=== PATIENT | male | born 1975 | race Caucasian/White ===

== ENCOUNTER 2019-12-06 10:42 | Outpatient (CLI) | payer OTHER, SELFPAY ==
--- NOTE | ~2019-12-06 | XR_ITS ---
EXAMINATION: XR chest 2V EXAM DATE: 12/06/2019 11:10 INDICATION: Upper respiratory infection. Cough. TECHNIQUE: Frontal and lateral projections of the chest obtained and reviewed. Comparison is made to prior examination from 10/29/2018. FINDINGS: The lungs are clear. There are no pleural effusions. The cardiomediastinal silhouette is within normal limits. There is no pneumothorax suspected. The bones and soft tissues are unremarkab le. IMPRESSION: No acute cardiopulmonary findings. Reviewed, dictated and finalized at location A. [employer]
== END 2019-12-06 10:43 | disposition home or self-care (01) ==
LOC: ANHIMG 10:50
PROVIDERS: PCP Family Medicine; Visit Provider Physician Assistant
DX: J06.9 Acute upper respiratory infection, unspecified (principal)
CPT/HCPCS: 71046

== ENCOUNTER 2020-01-23 09:27 | Outpatient (CLI) | payer OTHER, SELFPAY ==
--- NOTE | ~2020-01-23 | XR_ITS ---
EXAMINATION: XR shoulder RT min 2V INDICATION: Right shoulder pain TECHNIQUE: Four views of the right shoulder are submitted. COMPARISON: None FINDINGS: Normal alignment. No fracture. Glenohumeral and acromioclavicular joint spaces are normal. Soft tissues are unremarkable. IMPRESSION: No acute osseous abnormality. Reviewed, dictated and finalized at location B.
--- NOTE | ~2020-01-23 | XR_ITS ---
EXAMINATION: XR elbow LT min 3V DATE: 01/23/2020 09:59 INDICATION: Left elbow pain TECHNIQUE: Anteroposterior, two oblique and lateral views of the left elbow were obtained. COMPARISON: None. FINDINGS: Alignment is normal. No fracture or joint effusion. Joint spaces are normal. Soft tissues a re unremarkable. IMPRESSION: 1. No acute osseous abnormality. Reviewed, dictated and finalized at location B.
--- NOTE | ~2020-01-23 | US_ITS ---
US right upper quadrant INDICATION: Diffuse abdominal pain PROCEDURE: Realtime right upper abdominal ultrasound. COMPARISON: No prior studies for comparison. FINDINGS: The pancreas is normal without focal mass or pancreatic ductal dilation. Liver echotexture is normal. There is a small hyperechoic mass of the left hepatic lobe measuring 11 x 9 x 6 mm, most likely benign hemangioma in the absence of known malignancy. Clinically correlate. There is normal d irectional flow in the portal vein. The gallbladder is normal without stones, gallbladder wall thickening or pericholecystic fluid. Comm on bile duct measures 6 mm. No sonographic Swain's sign. IMPRESSION: 1: Small hyperechoic mass of the left hepatic lobe measuring 11 x 9 x 6 mm, most likely benign sandra ioma in the absence of known malignancy. Clinically correlate. Reviewed, dictated and finalized at location A. IMPRESSION: 1: Small hyperechoic mass of the left hepatic lobe measuring 11 x 9 x 6 mm, mos t likely benign hemangioma in the absence of known malignancy. Clinically corre late.
== END 2020-01-23 09:28 | disposition home or self-care (01) ==
LOC: ANHIMG 09:37
PROVIDERS: PCP Family Medicine; Visit Provider Family Medicine
DX: M25.522 Pain in left elbow (principal); M25.511 Pain in right shoulder; K30 Functional dyspepsia
CPT/HCPCS: 73030; 73080; 76705

== ENCOUNTER 2020-06-14 10:51 | Outpatient (CLI) | payer OTHER, SELFPAY ==
--- NOTE | ~2020-06-14 | XR_ITS ---
EXAMINATION: XR chest 2V DATE: 06/14/2020 11:15 INDICATION: Cough. Chest congestion. TECHNIQUE: Frontal and lateral views of the chest were obtained. COMPARISON: Chest 2 views 12/06/2019 FINDINGS: There is mild scarring at the lung apices. No pleural effusion or pneumothorax. The heart s ize is normal. IMPRESSION: 1. Mild scarring at the lung apices. Reviewed, dictated and finalized at location B.
== END 2020-06-14 10:52 | disposition home or self-care (01) ==
LOC: ANHIMG 10:54
PROVIDERS: PCP Family Medicine; Visit Provider Family Medicine
DX: R05 Cough (principal); R91.8 Other nonspecific abnormal finding of lung field
CPT/HCPCS: 71046

== ENCOUNTER 2021-09-26 14:11 | Outpatient (CLI) | payer OTHER, SELFPAY ==
--- NOTE | ~2021-09-26 | XR_ITS ---
XR foot LT min 3V 09/26/2021 15:28 Indication: Left foot pain Procedure: 4 views left foot Comparison: No prior studies for comparison. Findings: There is mild osteoarthritis of the first MTP joint. No fracture, subluxation or dislocatio n. Lisfranc joint is intact. No significant soft tissue abnormality. No foreign bodies. Impression: 1: Mild osteoarthritis of the first MTP joint. Reviewed, dictated and finalized at location A. [employer]N Impression: 1: Mild osteoarthritis of the first MTP joint.
--- NOTE | ~2021-09-26 | MR_ITS ---
EXAMINATION: MR shoulder RT wo con DATE: 09/26/2021 15:14 INDICATION: Progressively worsening chronic right shoulder pain with limited range of motion TECHNIQUE: Magnetic resonance imaging (MRI) of the right shoulder was performed without intravenous c ontrast. Sequences included axial PD-weighted FS FSE, coronal oblique PD-weighted FS FSE, coronal obl ique T2-weighted FS FSE, sagittal PD-weighted FS FSE, and sagittal T1-weighted SE. COMPARISON: None. FINDINGS: Coracoacromial arch: The acromion undersurface is curved in morphology (type II). The coracoacromial ligament is normal. M ild acromioclavicular osteoarthritis without inferiorly directed osteophytes. Rotator cuff: Mild supraspinatus tendinopathy with very small tear measuring 3 mm AP along the articular side of th e superior facet footplate which involves between one third and one half of the tendon thickness. The infraspinatus and teres minor tendons are normal. The subscapularis tendon is normal. Normal rotator cuff muscle bulk and signal. Biceps tendon, glenoid labrum and glenohumeral cartilage: Long head of the biceps tendon is normal. There is a tear at the anteroinferior glenoid labrum. Mild partial-thickness cartilage loss with smooth chondral surface at the anteroinferior glenoid. Fluid: Physiologic amount of fluid in the glenohumeral joint and biceps tendon sheath. No loose osteochondra l bodies. Small amount of fluid in the subacromial/subdeltoid bursa consistent with mild bursitis. Bones: Normal marrow signal with no edema, fracture or abnormal marrow replacing process. Mild cystic change at the anterior aspect of the superior facet of the greater tuberosity likely related to the adjacen t small rotator cuff tear. IMPRESSION: 1. Mild supraspinatus tendinopathy with very small articular sided tear at the anterior superior face t footplate. 2. Small tear at the anteroinferior glenoid with mild partial-thickness cartilage loss along the ante roinferior rim of the glenoid. Line 3. Mild subacromial/subdeltoid bursitis. Reviewed, dictated and finalized at location A. OTYPE ENGINEER IMPRESSION: 1. Mild supraspinatus tendinopathy with very small articular sided tear at the anterior superior facet footplate. 2. Small tear at the anteroinferior glenoid with mild partial-thickness cartila ge loss along the anteroinferior rim of the glenoid. Line 3. Mild subacromial/subdeltoid bursitis.
== END 2021-09-26 14:12 | disposition home or self-care (01) ==
LOC: ANHIMG 14:20
PROVIDERS: PCP Family Medicine; Visit Provider Family Medicine
DX: M75.51 Bursitis of right shoulder (principal); M19.072 Primary osteoarthritis, left ankle and foot
CPT/HCPCS: 73221; 73630

== ENCOUNTER 2022-06-06 14:13 | Emergency (ER) | payer OTHER, SELFPAY ==
--- NOTE | ~2022-06-06 | XR_ITS ---
EXAMINATION: XR chest 2V Exam Date/Time: 06/06/2022 15:23 CDT HISTORY: lt sided chest and back pain, copd Comparison: 06/14/2020. RESULT: Lines, tubes, and devices: None. Lungs and pleura: Clear. Bibasilar scar/atelectasis. Cardiomediastinal silhouette: Stable. Other: No acute osseous or upper abdominal finding. IMPRESSION: No acute cardiopulmonary process. Reviewed, dictated and finalized at location K.
[2022-06-06 14:28] VITALS: BP 107/84; PULSE 84; RESP 16; TEMP 36.7; O2SAT 97
--- NOTE | 2022-06-06 15:14 | ED.BACK ---
HPI - Back Pain/Injury General Chief Complaint: Back Pain/Injury Stated Complaint: Side and back Pain Time Seen by Provider: 06/06/22 15:05 Source: patient Mode of arrival: ambulatory Limitations: no limitations History of Present Illness HPI Narrative: Patient presents today complaining of left upper back pain radiating to the left chest since yesterday. States the pain is sharp and becomes worse with deep breaths or movement. He is short of breath at times. Patient states he Does have a chronic cough due to his COPD.He has tried no medication for symptoms prior to arrival.He was sick a few weeks ago and was on antibiotics prescribed by his PCP. Related Data Home Medications Medication Instructions Recorded Confirmed loratadine 10 mg tablet 10 mg PO DAILY 06/06/22 06/06/22 montelukast 10 mg tablet 10 mg PO DAILY 06/06/22 06/06/22 Allergies Allergy/AdvReac Type Severity Reaction Status Date / Time No Known Allergies Allergy Verified 06/06/22 14:18 Review of Systems Review of Systems: CONSTITUTIONAL: Denies body aches, fever, chills, or sweats. EYES: Denies visual changes, redness, or discharge. ENT: Denies rhinorrhea, congestion, sore throat, or otalgia. CARDIOVASCULAR: Denies chest pain, palpitations, or edema. RESPIRATORY:+Cough, shortness of breath GASTROINTESTINAL: Denies abdominal pain, nausea, vomiting, or diarrhea. GENITOURINARY: Denies dysuria or hematuria. SKIN: Denies rash, itching, or wounds. MUSCULOSKELETAL: Denies joint pain, or myalgia.+Left upper back pain NEUROLOGIC: Denies headache, numbness, tingling, or weakness. PSYCH: Denies depression or anxiety. PENDING SALE TO [facility] Past Medical History Medical History (Updated 06/06/22 @ 16:11 by Amirah Ortiz, [facility], ) COPD (chronic obstructive pulmonary disease) Social History Social History Smoking packs per day: 1.5 Smoking cigarettes per day: 30.0 Smoking status: Current every day smoker Comments At time of signature, I have reviewed and agree with nursing past medical, surgical, social and family history unless otherwise noted. Please see nursing chart for further information. There is no relevant family history pertinent to the presenting complaint Exam Narrative: GENERAL: Well-appearing, well-nourished, and in no acute distress. HEAD: Normocephalic, atraumatic. EYES: EOMI. No redness or drainage. Conjunctivae normal. ENT: Mucous membranes pink and moist. Nares clear. No rhinorrhea. TMs normal bilaterally. Throat normal. Uvula midline. NECK: Normal AROM. Supple. No lymphadenopathy. CHEST: No respiratory distress. Clear to auscultation. Pain is not reproducible to palpation of the back or chest, but is reproducible with movement of the left arm. HEART: Regular rate and rhythm. No murmur appreciated. Normal peripheral pulses. EXTREMITIES: Normal range of motion. No edema. SKIN: Warm, dry, no rash. Capillary refill normal. Normal skin turgor. NEURO: No focal deficits. Alert and oriented x3. Gait steady. PSYCH: Normal affect. No signs of depression or anxiety. Course Course Emergency Course: At this time, I feel it indicated to transfer patient to the ER for further evaluation of his backslash chest pain. Patient cannot guarantee that he will proceed directly to the ER as he does not want to wait several hours for evaluation. I told patient that I was unsure if the wait in the emergency department at [facility] at this time, But he should not make that decision based on weight times. We discussed risks of going home and not going to the hospital for further evaluation. At this time, patient would like to be discharged AGAINST MEDICAL ADVICE and may seek treatment in the emergency department at a later date Level of Care: Express Care Visit Vital Signs Vital signs: Vital Signs Temperature 98.1 F 06/06/22 14:28 Pulse Rate 84 06/06/22 14:28 Respiratory Rate 16
--- NOTE | 2022-06-06 15:34 | ECG_ITS ---
Measurements Intervals [place] Rate: 66 P: 33 IN: 158 QRS: 38 QRSD: 98 T: 33 QT: 347 QTc: 365 Interpretive Statements SINUS RHYTHM MINOR RIGHT VENTRICULAR CONDUCTION DELAY [RSR (QR) IN V1/V2] WITHIN NORMAL LIMITS NO PREVIOUS ECG AVAILABLE FOR COMPARISON Electronically Signed On 06-07-2022 8:19:02 CDT by Dion Dale M.D.
== END 2022-06-06 16:15 | disposition left against medical advice (07) ==
PROVIDERS: Emergency Provider Nurse Practitioner
DX: M54.6 Pain in thoracic spine (principal); R07.89 Other chest pain; F17.210 Nicotine dependence, cigarettes, uncomplicated; J44.9 Chronic obstructive pulmonary disease, unspecified
CPT/HCPCS: 71046; 93005; 99213; G0463

== ENCOUNTER 2022-10-09 18:40 | Emergency (ER) | payer OTHER, SELFPAY ==
--- NOTE | 2022-10-09 18:40 | ED.UPPEXIN ---
HPI - Extremity Injury (Upper) General Chief Complaint: Extremity Injury, Upper Stated Complaint: right shoulder pain Time Seen by Provider: 10/09/22 18:40 Source: patient Mode of arrival: ambulatory Limitations: no limitations History of Present Illness HPI narrative: Mr. Riggs is a 47-year-old male patient presenting to the clinic today with complaints of right-sided shoulder pain x 4 days. He reports he was removing metal items out of the truck to give to the scrap yd with his son-in-law and he was sling any things behind him with his right arm. states he is due for a cortisone injection in his right shoulder on Wednesday however he has been doing with the pain for 4 days and ibuprofen, Aleve, and Tylenol are not relieving his pain. He states he has 3 torn rotator cuff tears. States he had MRI 8 months ago and three rotator cuff tears were found. also reporting some muscle spasms in the right anterior shoulder as well as over the cervical aspect of the trapezius muscle. Related Data Allergies Allergy/AdvReac Type Severity Reaction Status Date / Time No Known Allergies Allergy Verified 06/06/22 14:18 Review of Systems Review of Systems: Pertinent positives per HPI. Patient denies any fever, chills, rash, headache, visual changes, dizziness, cough, runny nose, sore throat, shortness of breath, chest pain, palpitations, nausea, vomiting, diarrhea, constipation, abdominal pain, or any urinary issues. [facility] Past Medical History Medical History COPD (chronic obstructive pulmonary disease) Social History Social History Smoking packs per day: 1.5 Smoking cigarettes per day: 30.0 Smoking status: Current every day smoker Comments At the time of my signature, I reviewed and agree with the nursing past medical, surgical, social, and family history. There is no relevant family history pertinent to the patient complaint. Exam Narrative: General: Well-developed, well nourished, in no apparent distress Head: Normocephalic, atraumatic. Cardio: Regular rate and rhythm, s1 and s2 normal, no murmur appreciated. Resp: Clear to auscultation bilaterally, no rhonchi, rales, wheezing or rubs. Musculoskeletal: No deformity, tender to palpation Over the anterior and posterior shoulder and as well as over the cervical portion of the trapezius muscle on the right side. Pain with raising his right arm above his head, negative drop-arm test. limited range of motion due to pain, bilateral hand certified fire investigator strong and equal, upper extremity muscle strength strong and equal, peripheral pulse strong, no edema, no cyanosis, normal gait and station Course Course Emergency Course: Portions of this record may have been created with voice recognition software. Level of Care: Express Care Visit Vital Signs Vital signs: Vital Signs Temperature 36.9 C 10/09/22 18:51 Pulse Rate 92 10/09/22 18:51 Respiratory Rate 16 10/09/22 18:51 Blood Pressure 140/92 H 10/09/22 18:51 Pulse Oximetry 98 10/09/22 18:51 Oxygen Delivery Room Air 10/09/22 18:51 Temperature 36.9 C 10/09/22 18:51 Pulse Rate 92 10/09/22 18:51 Respiratory Rate 16 10/09/22 18:51 Blood Pressure 140/92 H 10/09/22 18:51 Pulse Oximetry 98 10/09/22 18:51 Oxygen Delivery Room Air 10/09/22 18:51 Vital signs reviewed MDM - Extremity Injury (Upper) MDM Narrative Medical decision making narrative: at the time of visit patient is resting comfortably on exam table. I suspect the patient has an exacerbation of chronic shoulder pain as well as a portion of a cervical strain over the trapezius muscle on the right side. Prescription for a muscle relaxer Flexeril and prednisone was sent to the pharmacy. Supportive measures were discussed with the patient he voiced understanding of discharge instructions and agrees to treatment plan. He is t
[2022-10-09 18:51] VITALS: BP 140/92; PULSE 92; RESP 16; TEMP 36.9; O2SAT 98
== END 2022-10-09 19:09 | disposition home or self-care (01) ==
PROVIDERS: Emergency Provider Nurse Practitioner Family
DX: S46.811A Strain of other muscles, fascia and tendons at shoulder and upper arm level, right arm, initial encounter (principal); J44.9 Chronic obstructive pulmonary disease, unspecified; F17.210 Nicotine dependence, cigarettes, uncomplicated; X58.XXXA Exposure to other specified factors, initial encounter
CPT/HCPCS: 99213; G0463

== ENCOUNTER 2022-11-27 11:14 | Outpatient (CLI) | payer OTHER, SELFPAY ==
--- NOTE | ~2022-11-27 | CT_ITS ---
EXAMINATION:CT diagnostic chest wo con DATE: 11/27/2022 11:45 INDICATION: Respiratory crackles. TECHNIQUE: Computed tomography (CT) of the chest was performed without intravenous contrast. Automate d exposure control and iterative reconstruction technique were employed. The dose-length product (DLP ) was 205.44 mGy-cm. COMPARISON: Chest 2 views 06/06/2022 FINDINGS: There is mild emphysema. There is mild atelectasis bilaterally. There is a 4 mm nodule at l eft major fissure, likely benign. There is mild bronchiectasis in right middle lobe and lingula. No p leural effusion. The heart size is normal. No pericardial effusion. There is mild thoracic spondylosi s. IMPRESSION: 1. Mild emphysema. 2. Mild bronchiectasis in right middle lobe and lingula. Reviewed, dictated and finalized at location A. MAKER
[2022-11-30 14:34] LABS: NIL 0.03 IU/mL; Quantiferon TB Plus, 1T NEGATIVE (NEGATIVE)
[2022-11-30 14:47] LABS: Immunoglobulin G, Serum 522 mg/dL (600-1640); Immunoglobulin G1 288 mg/dL (382-929); Immunoglobulin G2 120 mg/dL (241-700); Immunoglobulin G3 88 mg/dL (22-178); Immunoglobulin G4 23.4 mg/dL (4.0-86.0)
[2022-12-04 03:21] LABS: Immunoglobulin E 56 kU/L (<=114)
== END 2022-11-27 11:15 | disposition home or self-care (01) ==
PROVIDERS: PCP Physician Assistant; Visit Provider Nurse Practitioner
DX: E88.01 Alpha-1-antitrypsin deficiency (principal); J43.9 Emphysema, unspecified; J47.9 Bronchiectasis, uncomplicated
CPT/HCPCS: 36415; 71250; 82103; 82784; 82785; 82787; 86003; 86480

== ENCOUNTER 2023-01-06 11:41 | Outpatient (CLI) | payer OTHER, SELFPAY ==
[2023-01-09 09:19] LABS: Alpha-1-Antitrypsin, QN 103 mg/dL (83-199)
== END 2023-01-06 11:42 | disposition home or self-care (01) ==
PROVIDERS: PCP Physician Assistant; Visit Provider Nurse Practitioner
DX: E88.01 Alpha-1-antitrypsin deficiency (principal)
CPT/HCPCS: 36415; 82103

== ENCOUNTER 2023-05-18 13:04 | Outpatient (CLI) | payer OTHER, SELFPAY ==
[2023-05-22 23:00] LABS: Immunoglobulin G, Serum 554 mg/dL (600-1640); Immunoglobulin G1 325 mg/dL (382-929); Immunoglobulin G2 135 mg/dL (241-700); Immunoglobulin G3 89 mg/dL (22-178); Immunoglobulin G4 29.4 mg/dL (4.0-86.0)
== END 2023-05-18 13:05 | disposition home or self-care (01) ==
PROVIDERS: PCP Physician Assistant; Visit Provider Nurse Practitioner
DX: D84.9 Immunodeficiency, unspecified (principal)
CPT/HCPCS: 36415; 82784; 82787

== ENCOUNTER 2024-11-13 10:16 | Emergency (ER) | payer OTHER, SELFPAY ==
[2024-11-13 10:23] VITALS: BP 124/79; PULSE 70; RESP 20; TEMP 36.4; O2SAT 100
--- NOTE | 2024-11-13 10:24 | ED.DENTAL ---
HPI - Dental/Oral General Chief complaint: Dental/Oral Stated complaint: Dental Pain Time Seen by Provider: 11/13/24 10:20 Source: patient Mode of arrival: ambulatory Limitations: no limitations History of Present Illness HPI Narrative: Patient is a 41-year-old male who presents with right lower dental pain. Patient has painful, broken tooth and has been seen by 1 dentist. Follow up dental appointment is December 01. Denies any bitter taste mouth. Related Data Allergies Allergy/AdvReac Type Severity Reaction Status Date / Time No Known Allergies Allergy Verified 06/06/22 14:18 Review of Systems Review of Systems: All systems reviewed & are unremarkable except as noted in HPI and below Constitutional: Constitutional: Denies body ache(s), Denies fever(s), Denies headache(s), Denies malaise and Denies weakness Eyes: Eyes: Denies loss of vision ENT: Denies otalgia, Reports facial pain (jaw), Denies headache(s), Denies nasal discharge, Denies sinus pain and Denies sore throat Cardiovascular: Cardiovascular: Denies chest pain, Denies irregular heart rhythm and Denies dyspnea Respiratory: Respiratory: Denies dyspnea Gastrointestinal: Gastrointestinal: Denies abdominal pain, Denies melena, Denies hematochezia, Denies diarrhea, Denies nausea and Denies vomiting Musculoskeletal: Musculoskeletal: Denies back pain, Denies myalgias and Denies arthralgias Integumentary/Breasts: Skin/Breast: Denies pruritus and Denies rash Neurologic: Denies headache(s), Denies loss of vision and Denies weakness Psychiatric: Psychiatric: Reports no additional psychiatric complaints PMFSH Past Medical History Medical History COPD (chronic obstructive pulmonary disease) Social History Social History Smoking packs per day: 1.5 Smoking cigarettes per day: 30.0 Smoking status: Current every day smoker Comments At time of signature, agree with nursing past medical, surgical, social and family history. There is no relevant family history pertinent to the presenting complaint. Exam Const: General: cooperative, healthy appearing, comfortable, no acute distress and well nourished Nutritional Appearance: well nourished Orientation/consciousness: patient oriented x3 Limitations: no limitations HENMT: Head: normal to inspection, normocephalic and atraumatic Ears: hearing grossly normal bilaterally, external ears normal, TM's normal bilaterally and mastoids normal bilaterally Face/Nose/Sinus: Normal external nose present, normal facial exam and face symmetric Face and sinus: normal facial exam and face symmetric Mouth: Yes Normal oral and palatal mucosa present, Yes lip normal, Yes tongue normal, Yes Normal salivary glands and ducts present and Yes moist mucous membranes Teeth and gingiva: abnormal tooth and associated gingiva lower right first molar tender, with associated gingival edema and dentin fractured and poor dentition Eyes: General: appearance normal, both eyes and all related structures Alignment and Position: alignment normal and position normal Periorbital: periorbital findings normal Eyelids: eyelids normal Pupils: Equal, round and reactive pupils present EOM: EOMs intact bilaterally Neck: Neck: normal visual inspection, full ROM, no lymphadenopathy and supple Chest: Chest palpation & inspection: normal inspection of the chest Resp: Effort & Inspection: normal respiratory effort and able to speak in complete sentences Auscultation: clear to auscultation bilaterally Cardio: Rate: regular rate Rhythm: regular rhythm Heart sounds: S1 normal heart sound present and S2 normal heart sound present GI: Inspection: normal to inspection Skin: General skin exam: normal color and no rashes or lesions noted Neuro: General: patient oriented x3 and moves all extremities Cranial nerves: Yes Equal, round and reactive pupils present Speech: normal speech Gait exam (Neuro): Normal gait present Extrem: General: normal to inspection, full ROM and no edema Psych: Appearance: grossly normal and well kempt Mental Status: mental status grossly normal Speech and movement: Normal speech and movement present Affect: normal affect Attitude: cooperative Thought process: Normal thought process present Course Course Emergency Course: Patient is aware of diagnosis, understands and agrees to treatment plan. Anticipatory guidance given. Patient agrees to follow-up as directed and is aware of reasons to seek care at the emergency department. Portions of this record may have been created with voice recognition software Level of Care: Express Care Visit Vital Signs Vital signs: Reviewed MDM - Dental/Oral MDM Narrative Medical decision making narrative: Patients pain and complaint coupled with physical findings are consistant with dentalgia. There are no focal signs of space occupying lesions that are compromising to the airway; no dysphagia, odynophagia, dysphonia, or dyspnea. No uvular deviation or soft palate edema. Patient is non-toxic appearing. The floor of the mouth is soft with no signs of Alverto's Angina; no induration below mandible, no neck pain. Patient is without trismus or drooling and able to swallow secretions. Patient is felt appropriate for discharge home with dental follow up. Differential Diagnosis Differential diagnosis: Likely gingival abscess, dental caries, toothache, dental abscess and fracture of tooth Medical Records Attestation: I reviewed the patient's medical records. Discharge Plan Discharge Clinical Impression: Dental abscess Patient Disposition: Home, Self-Care Condition: Stable Instructions: Dental Abscess (ED) Additional Instructions: Take antibiotic until it's gone. Brushing teeth at least twice daily with gentle flossing. Avoid temperature extremes---when you eat. Salt gargle to rinse your mouth after every meal You may apply ice to the face to reduce pain/swelling. For pain, you may take: Tylenol 650-1000mg by mouth every 4-6 hours. Do not exceed 4000mg in 24 hours. Advil (Ibuprofen) 600 mg by mouth every 6 hours. Do not exceed 2400mg in 24 hours. 8 AM: Tylenol 11 AM: Ibuprofen 2 PM: Tylenol 5 PM: Ibuprofen 8 PM: Tylenol 11 PM: Ibuprofen 2 AM: Tylenol 5 AM: Ibuprofen Also, recommend regular dental check up one-two times a year to prevent tooth decay and other periodontal disease. Follow-up with the dentist as soon as possible--see the list provided Patient Language: Georgian Prescriptions: New amoxicillin-pot clavulanate 875-125 mg tablet 1 tablet PO Q12H 14 Days Qty: 28 0RF No Action cyclobenzaprine 10 mg tablet 10 mg PO Q8H PRN (Reason: muscle spasm) 7 Days Qty: 21 0RF prednisone 20 mg tablet 40 mg PO DAILY 5 Days Qty: 10 0RF Follow-up/Referrals: Jeffry,BEBETO Ross [Primary Care Provider] - 3 Days Stand Alone Forms: Work/School Release IP Time of Disposition: 10:51
== END 2024-11-13 11:07 | disposition home or self-care (01) ==
PROVIDERS: Emergency Provider Nurse Practitioner Family; PCP Physician Assistant
DX: K04.7 Periapical abscess without sinus (principal); J44.9 Chronic obstructive pulmonary disease, unspecified; F17.210 Nicotine dependence, cigarettes, uncomplicated
CPT/HCPCS: 99213; G0463